=== PATIENT | female | born 1965 | race Two or more races ===

== ENCOUNTER 2019-08-06 10:18 | Inpatient (IN) | payer OTHER ==
[~2019-08-06] VITALS: Ht 165.1 cm; Wt 70.3 kg
[2019-08-26] MEDS ORDERED: [UNRECOGNIZED DRUG - SUPPLY] (09:46)
[2019-08-26] MEDS ORDERED: GABAPENTIN300 MG PO (09:47)
== END 2019-09-04 14:23 | disposition home or self-care (01) | DRG 583 ==
LOC: SURG 08-31 07:00 → O/R 09-02 04:55 → SURG 09-02 07:00
PROVIDERS: ADMIT Specialist
PROC: 0HBU0ZZ Excision of Left Breast, Open Approach (ICD-10-PCS; principal; 2019-09-02 08:15)
DX: C50.112 Malignant neoplasm of central portion of left female breast (principal); Z17.0 Estrogen receptor positive status [ER+]

== ENCOUNTER 2019-12-10 06:05 | Day surgery (SDC) | payer OTHER ==
[~2019-12-10 06:05] MED LIST: GABAPENTIN300 MG PO; [UNRECOGNIZED DRUG - SUPPLY]
== END 2019-12-10 14:10 | disposition home or self-care (01) ==
LOC: CIR.AMB 06:05
PROVIDERS: Plastic Surgery
PROC: 0HRU0JZ Replacement of Left Breast with Synthetic Substitute, Open Approach (ICD-10-PCS; 2019-12-10)
PROC: 0H0U0JZ Alteration of Left Breast with Synthetic Substitute, Open Approach (ICD-10-PCS; 2019-12-10)
PROC: 0HQT0ZZ Repair Right Breast, Open Approach (ICD-10-PCS; 2019-12-10)
PROC: 0HPU0NZ Removal of Tissue Expander from Left Breast, Open Approach (ICD-10-PCS; principal; 2019-12-10 07:30)
DX: N65.1 Disproportion of reconstructed breast (principal); Z90.12 Acquired absence of left breast and nipple